=== PATIENT | male | born 1950 | race Caucasian/White ===

== ENCOUNTER 2017-04-19 10:52 | Inpatient (IN) | payer OTHER, MEDICAID ==
[~2017-04-19] VITALS: Ht 172.7 cm; Wt 54.3 kg
[~2017-04-19 10:52] MED LIST: ALBU8.5H3 PO; ASPI-496 PO; ATORVASTATIN PO; DOXY100C2 PO; DOXYCYCLINE PO; IBUP200T64 PO; IBUPROFEN PO; LISI-170 PO; LISINOPRIL PO; LISINOPRIL/HCTZ PO
[2017-04-19] MEDS ORDERED: LACTATED RINGERS 1,000 ML IV SCH (11:17)
[2017-04-19 11:57] VITALS: BP 132/80
[2017-04-19] MEDS ORDERED: ATOR40TA PO (12:13)
[2017-04-19] MEDS ORDERED: LISI1TAB5 PO (12:14)
[2017-04-19] MEDS ORDERED: MIDAZOLAM 1 MG/ML, 2ML ONE (12:47)
[2017-04-19] MEDS ORDERED: FENTANYL PF 250 MCG/5ML ONE (12:47)
[2017-04-19] MEDS ORDERED: DEXAMETHASONE 4 MG/ML, 1ML ONE (12:56)
[2017-04-19] MEDS ORDERED: ROCURONIUM 10 MG/ML ONE (12:56)
[2017-04-19] MEDS ORDERED: CEFAZOLIN 1,000 MG ONE (12:56)
[2017-04-19] MEDS ORDERED: PHENYLEPHRINE 10 MG/ML ONE (12:56)
[2017-04-19] MEDS ORDERED: VASOPRESSIN 20 UNIT/ML, 1ML ONE (12:56)
[2017-04-19] MEDS ORDERED: ONDANSETRON 2MG/ML, 2ML ONE (12:56)
[2017-04-19] MEDS ORDERED: PROPOFOL 10 MG/ML, 20ML ONE (12:56)
[2017-04-19] MEDS ORDERED: BUPIVACAINE/PF-EPI 0.5% 1:200K INFIL ONE (13:33)
[2017-04-19] MEDS ORDERED: BACITRACIN 50,000 UNIT IRRIG ONE (13:33)
[2017-04-19] MEDS ORDERED: THROMBIN 20,000 UNIT VIAL TP ONE (13:34)
[2017-04-19] MEDS ORDERED: HEPARIN 1,000 UNITS/ML, 10ML IV ONE (13:34)
[2017-04-19] MEDS ORDERED: LABETALOL 5MG/ML, 20ML IV PRN (14:00)
[2017-04-19] MEDS ORDERED: hydrALAzine 20 MG/ML, 1ML IV PRN (14:00)
[2017-04-19] MEDS ORDERED: HYDROmorphone 1 MG/ML, 1ML IV PRN (14:00)
[2017-04-19] MEDS ORDERED: ONDANSETRON 2MG/ML, 2ML IVPush PRN ×2 (14:00→19:00)
[2017-04-19] MEDS ORDERED: MEPERIDINE/PF 25MG/0.5ML IVPush PRN (14:00)
[2017-04-19] MEDS ORDERED: ALBUTEROL SULFATE 2.5 MG/3 ML NPPB PRN (14:00)
[2017-04-19] MEDS ORDERED: OXYcodone 5 MG/5 ML ORAL.SOL UDC PO PRN (14:00)
[2017-04-19] MEDS ORDERED: FENTANYL PF 100 MCG/2ML IV PRN (14:00)
[2017-04-19] MEDS ORDERED: MIDAZOLAM 1 MG/ML, 2ML IV PRN (14:00)
[2017-04-19] MEDS ORDERED: PROMETHAZINE 25 MG/ML, 1ML IV PRN (14:00)
[2017-04-19] MEDS ORDERED: FENTANYL PF 100 MCG/2ML ONE ×4 (15:23→18:24)
[2017-04-19] MEDS ORDERED: OXYcodone 5 MG/5 ML ORAL.SOL UDC ONE (18:24)
[2017-04-19] MEDS ORDERED: ALBUTEROL SULFATE PO SCH (19:00)
[2017-04-19] MEDS ORDERED: morphine SULFATE 10 MG/ML, 1ML IV PRN (19:00)
[2017-04-19] MEDS ORDERED: HYDROcodone/APAP 5/325 TABLET PO PRN (19:00)
[2017-04-19 20:00] VITALS: BP 124/72
[2017-04-19] MEDS: LACTATED RINGERS 1,000 ML IV SCH (21:09)
[2017-04-19] MEDS: ATORVASTATIN 40 MG TABLET PO SCH (21:09)
[2017-04-19] MEDS: CEFAZOLIN PMX 2GM/50ML 50 ML IVPB SCH (21:09)
[2017-04-20 00:13] VITALS: BP 102/63
[2017-04-20 03:26] VITALS: BP 101/63
[2017-04-20 05:14] LABS: BLOOD UREA NITROGEN 34 mg/dL (7-18)
[2017-04-20] MEDS: CEFAZOLIN PMX 2GM/50ML 50 ML IVPB SCH (05:47)
[2017-04-20] MEDS ORDERED: ASPIRIN 325 MG TABLET EC PO SCH (06:00)
[2017-04-20 08:04] VITALS: BP 124/81
[2017-04-20] MEDS: HYDROCHLOROTHIAZIDE 12.5 MG CAPSULE PO SCH (09:00)
[2017-04-20] MEDS: LISINOPRIL 20 MG TABLET PO SCH (09:00)
[2017-04-20] MEDS: ENOXAPARIN 40 MG/0.4 ML SQ SCH (09:28)
[2017-04-20] MEDS: LACTATED RINGERS 1,000 ML IV SCH ×2 (09:29→16:00)
[2017-04-20] MEDS: DOXYCYCLINE 100MG TABLET PO SCH ×2 (10:19→20:47)
[2017-04-20 10:22] VITALS: BP 99/65
[2017-04-20 14:30] VITALS: BP 118/67
[2017-04-20 19:55] VITALS: BP_SYST 118; BP_SYST 121; BP_DIAS 69; BP_DIAS 70
[2017-04-20] MEDS: ATORVASTATIN 40 MG TABLET PO SCH (20:47)
[2017-04-21 02:55] VITALS: BP 99/51
[2017-04-21] MEDS ORDERED: ASPIRIN 325 MG TABLET EC PO SCH (06:00)
[2017-04-21] MEDS: LACTATED RINGERS 1,000 ML IV SCH ×2 (08:00)
[2017-04-21 08:15] VITALS: BP 99/55
[2017-04-21] MEDS: LISINOPRIL 20 MG TABLET PO SCH (09:00)
[2017-04-21] MEDS: HYDROCHLOROTHIAZIDE 12.5 MG CAPSULE PO SCH (09:00)
[2017-04-21] MEDS: ENOXAPARIN 40 MG/0.4 ML SQ SCH (09:03)
[2017-04-21] MEDS: DOXYCYCLINE 100MG TABLET PO SCH (09:04)
[2017-04-21 12:35] VITALS: BP 115/64
== END 2017-04-21 16:53 | disposition home or self-care (01) | DRG 270 ==
LOC: OUT 10:52 → EDBD 13:00 → UNMERGE 13:00 → MERGE 13:00 → EDSTATUS 13:00 → ORIP 18:51 → 4NOR 19:55
PROC: 04UL0JZ Supplement Left Femoral Artery with Synthetic Substitute, Open Approach (ICD-10-PCS; 2017-04-19)
PROC: 047J3DZ Dilation of Left External Iliac Artery with Intraluminal Device, Percutaneous Approach (ICD-10-PCS; 2017-04-19)
PROC: 047D3DZ Dilation of Left Common Iliac Artery with Intraluminal Device, Percutaneous Approach (ICD-10-PCS; 2017-04-19)
PROC: 041 Lower Arteries, Bypass (ICD-10-PCS; 2017-04-19)
PROC: 06BQ4ZZ Excision of Left Saphenous Vein, Percutaneous Endoscopic Approach (ICD-10-PCS; 2017-04-19)
PROC: B41D1ZZ Fluoroscopy of Aorta and Bilateral Lower Extremity Arteries using Low Osmolar Contrast (ICD-10-PCS; 2017-04-19)
PROC: 04CL3ZZ Extirpation of Matter from Left Femoral Artery, Percutaneous Approach (ICD-10-PCS; principal; 2017-04-19 13:00)
DX: I70.262 Atherosclerosis of native arteries of extremities with gangrene, left leg (principal); E43 Unspecified severe protein-calorie malnutrition; L03.90 Cellulitis, unspecified; L97.329 Non-pressure chronic ulcer of left ankle with unspecified severity; M86.8X7 Other osteomyelitis, ankle and foot; E78.5 Hyperlipidemia, unspecified; I10 Essential (primary) hypertension; J44.9 Chronic obstructive pulmonary disease, unspecified; I70.90 Unspecified atherosclerosis; F17.210 Nicotine dependence, cigarettes, uncomplicated; I69.320 Aphasia following cerebral infarction
CPT/HCPCS: 36415; 37221; 37223; 75630; 80048; 82040; 85025; 86850; 86900; 86923; C1725; C1729; J0690; J1100; J1644; J1650; J2250; J2405; J2704; J2720; J3010; Q9966; C1769; C1876; C1894; J2370; J7120

== ENCOUNTER → 2017-05-12 | Outpatient (CLI) | payer OTHER, MEDICAID ==
[~2017-05-12] MED LIST changes: +ATOR40TA PO; +LISI1TAB5 PO
== END | disposition home or self-care (01) ==
LOC: WOUND 14:07
PROVIDERS: ATTEND Podiatrist Foot & Ankle Surgery
DX: I70.245 Atherosclerosis of native arteries of left leg with ulceration of other part of foot (principal); L97.521 Non-pressure chronic ulcer of other part of left foot limited to breakdown of skin; I10 Essential (primary) hypertension; E78.5 Hyperlipidemia, unspecified; J44.9 Chronic obstructive pulmonary disease, unspecified; M86.172 Other acute osteomyelitis, left ankle and foot; F17.210 Nicotine dependence, cigarettes, uncomplicated; Z86.73 Personal history of transient ischemic attack (TIA), and cerebral infarction without residual deficits
CPT/HCPCS: 11044; G0463; WOU0463

== ENCOUNTER → 2017-05-19 | Outpatient (CLI) | payer OTHER, MEDICAID | END | disposition home or self-care (01) | LOC: WOUND 09:00 | PROVIDERS: ATTEND Podiatrist Foot & Ankle Surgery | DX: I70.245 Atherosclerosis of native arteries of left leg with ulceration of other part of foot (principal); L97.521 Non-pressure chronic ulcer of other part of left foot limited to breakdown of skin; I10 Essential (primary) hypertension; M86.172 Other acute osteomyelitis, left ankle and foot; F17.210 Nicotine dependence, cigarettes, uncomplicated; Z86.73 Personal history of transient ischemic attack (TIA), and cerebral infarction without residual deficits | CPT/HCPCS: 11043 ==

== ENCOUNTER → 2017-05-26 | Outpatient (CLI) | payer OTHER, MEDICAID | END | disposition home or self-care (01) | LOC: WOUND 09:11 | PROVIDERS: ATTEND Podiatrist Foot & Ankle Surgery | DX: I70.245 Atherosclerosis of native arteries of left leg with ulceration of other part of foot (principal); L97.521 Non-pressure chronic ulcer of other part of left foot limited to breakdown of skin; M86.172 Other acute osteomyelitis, left ankle and foot; I10 Essential (primary) hypertension; J44.9 Chronic obstructive pulmonary disease, unspecified; E78.5 Hyperlipidemia, unspecified; E43 Unspecified severe protein-calorie malnutrition; Z86.73 Personal history of transient ischemic attack (TIA), and cerebral infarction without residual deficits; Z86.718 Personal history of other venous thrombosis and embolism; F17.208 Nicotine dependence, unspecified, with other nicotine-induced disorders | CPT/HCPCS: 15275; Q4132 ==

== ENCOUNTER → 2017-06-01 | Outpatient (CLI) | payer OTHER, MEDICAID | END | disposition home or self-care (01) | LOC: CARD 13:02 | PROVIDERS: ATTEND Podiatrist Foot & Ankle Surgery | DX: I74.5 Embolism and thrombosis of iliac artery (principal); L97.529 Non-pressure chronic ulcer of other part of left foot with unspecified severity; M86.172 Other acute osteomyelitis, left ankle and foot; M86.171 Other acute osteomyelitis, right ankle and foot; I73.9 Peripheral vascular disease, unspecified; I87.2 Venous insufficiency (chronic) (peripheral); Z72.0 Tobacco use; Z86.73 Personal history of transient ischemic attack (TIA), and cerebral infarction without residual deficits | CPT/HCPCS: 93922; 93925; 93970; 93978 ==

== ENCOUNTER → 2017-06-02 | Outpatient (CLI) | payer OTHER, MEDICAID | END | disposition home or self-care (01) | LOC: WOUND 09:07 | PROVIDERS: ATTEND Podiatrist Foot & Ankle Surgery | DX: I70.245 Atherosclerosis of native arteries of left leg with ulceration of other part of foot (principal); L97.521 Non-pressure chronic ulcer of other part of left foot limited to breakdown of skin; I10 Essential (primary) hypertension; M86.8X7 Other osteomyelitis, ankle and foot; M86.172 Other acute osteomyelitis, left ankle and foot; M86.171 Other acute osteomyelitis, right ankle and foot; I87.2 Venous insufficiency (chronic) (peripheral); J44.9 Chronic obstructive pulmonary disease, unspecified; E78.5 Hyperlipidemia, unspecified; F17.208 Nicotine dependence, unspecified, with other nicotine-induced disorders; Z86.73 Personal history of transient ischemic attack (TIA), and cerebral infarction without residual deficits; Z86.718 Personal history of other venous thrombosis and embolism | CPT/HCPCS: 15275; Q4133 ==

== ENCOUNTER → 2017-06-09 | Outpatient (CLI) | payer OTHER, MEDICAID | END | disposition home or self-care (01) | LOC: WOUND 09:02 | PROVIDERS: ATTEND Podiatrist Foot & Ankle Surgery | DX: I70.245 Atherosclerosis of native arteries of left leg with ulceration of other part of foot (principal); L97.521 Non-pressure chronic ulcer of other part of left foot limited to breakdown of skin; I10 Essential (primary) hypertension; J44.9 Chronic obstructive pulmonary disease, unspecified; E78.5 Hyperlipidemia, unspecified; M86.8X7 Other osteomyelitis, ankle and foot; I87.2 Venous insufficiency (chronic) (peripheral); E43 Unspecified severe protein-calorie malnutrition; Z86.718 Personal history of other venous thrombosis and embolism; Z86.73 Personal history of transient ischemic attack (TIA), and cerebral infarction without residual deficits; F17.210 Nicotine dependence, cigarettes, uncomplicated | CPT/HCPCS: 15275; Q4132 ==

== ENCOUNTER → 2017-06-16 | Outpatient (CLI) | payer OTHER, MEDICAID | END | disposition home or self-care (01) | LOC: WOUND 08:55 | PROVIDERS: ATTEND Podiatrist Foot & Ankle Surgery | DX: I70.245 Atherosclerosis of native arteries of left leg with ulceration of other part of foot (principal); L97.521 Non-pressure chronic ulcer of other part of left foot limited to breakdown of skin; I10 Essential (primary) hypertension; M86.172 Other acute osteomyelitis, left ankle and foot; M86.171 Other acute osteomyelitis, right ankle and foot; J44.9 Chronic obstructive pulmonary disease, unspecified; I87.2 Venous insufficiency (chronic) (peripheral); F17.210 Nicotine dependence, cigarettes, uncomplicated; Z86.711 Personal history of pulmonary embolism; Z86.73 Personal history of transient ischemic attack (TIA), and cerebral infarction without residual deficits | CPT/HCPCS: 15271; Q4132 ==

== ENCOUNTER → 2017-06-23 | Outpatient (CLI) | payer OTHER, MEDICAID | END | disposition home or self-care (01) | LOC: WOUND 09:04 | PROVIDERS: ATTEND Podiatrist Foot & Ankle Surgery | DX: I70.245 Atherosclerosis of native arteries of left leg with ulceration of other part of foot (principal); L97.521 Non-pressure chronic ulcer of other part of left foot limited to breakdown of skin; I10 Essential (primary) hypertension; E78.5 Hyperlipidemia, unspecified; J44.9 Chronic obstructive pulmonary disease, unspecified; M86.172 Other acute osteomyelitis, left ankle and foot; M86.171 Other acute osteomyelitis, right ankle and foot; F17.208 Nicotine dependence, unspecified, with other nicotine-induced disorders; Z86.718 Personal history of other venous thrombosis and embolism; Z86.711 Personal history of pulmonary embolism; Z86.73 Personal history of transient ischemic attack (TIA), and cerebral infarction without residual deficits | CPT/HCPCS: 15275; Q4132 ==

== ENCOUNTER → 2017-06-30 | Outpatient (CLI) | payer OTHER, MEDICAID | END | disposition home or self-care (01) | LOC: WOUND 08:42 | PROVIDERS: ATTEND Podiatrist Foot & Ankle Surgery | DX: I70.245 Atherosclerosis of native arteries of left leg with ulceration of other part of foot (principal); L97.521 Non-pressure chronic ulcer of other part of left foot limited to breakdown of skin; I10 Essential (primary) hypertension; J44.9 Chronic obstructive pulmonary disease, unspecified; E78.5 Hyperlipidemia, unspecified; I87.2 Venous insufficiency (chronic) (peripheral); M86.171 Other acute osteomyelitis, right ankle and foot; F17.209 Nicotine dependence, unspecified, with unspecified nicotine-induced disorders; Z86.711 Personal history of pulmonary embolism; Z86.73 Personal history of transient ischemic attack (TIA), and cerebral infarction without residual deficits | CPT/HCPCS: 15275; Q4132 ==

== ENCOUNTER → 2017-07-07 | Outpatient (CLI) | payer OTHER, MEDICAID ==
[~2017-07-07] MED LIST changes: -ALBU8.5H3 PO; +ALBU8.5H8 PO
== END | disposition home or self-care (01) ==
LOC: WOUND 08:59
PROVIDERS: ATTEND Podiatrist Foot & Ankle Surgery
DX: I70.245 Atherosclerosis of native arteries of left leg with ulceration of other part of foot (principal); L97.521 Non-pressure chronic ulcer of other part of left foot limited to breakdown of skin; I10 Essential (primary) hypertension; M86.172 Other acute osteomyelitis, left ankle and foot; M86.171 Other acute osteomyelitis, right ankle and foot; E78.5 Hyperlipidemia, unspecified; J44.9 Chronic obstructive pulmonary disease, unspecified; F17.210 Nicotine dependence, cigarettes, uncomplicated; Z86.73 Personal history of transient ischemic attack (TIA), and cerebral infarction without residual deficits; Z86.718 Personal history of other venous thrombosis and embolism; Z86.711 Personal history of pulmonary embolism
CPT/HCPCS: 15275; Q4132

== ENCOUNTER → 2017-07-14 | Outpatient (CLI) | payer OTHER, MEDICAID | END | disposition home or self-care (01) | LOC: WOUND 09:04 | PROVIDERS: ATTEND Podiatrist Foot & Ankle Surgery | DX: I70.245 Atherosclerosis of native arteries of left leg with ulceration of other part of foot (principal); L97.521 Non-pressure chronic ulcer of other part of left foot limited to breakdown of skin; M86.172 Other acute osteomyelitis, left ankle and foot; I10 Essential (primary) hypertension; F17.208 Nicotine dependence, unspecified, with other nicotine-induced disorders; J44.9 Chronic obstructive pulmonary disease, unspecified; E78.5 Hyperlipidemia, unspecified; Z86.718 Personal history of other venous thrombosis and embolism; Z86.711 Personal history of pulmonary embolism; Z86.73 Personal history of transient ischemic attack (TIA), and cerebral infarction without residual deficits; I87.2 Venous insufficiency (chronic) (peripheral) | CPT/HCPCS: 11044 ==

== ENCOUNTER → 2017-07-21 | Outpatient (CLI) | payer OTHER, MEDICAID | END | disposition home or self-care (01) | LOC: WOUND 09:15 | PROVIDERS: ATTEND Podiatrist Foot & Ankle Surgery | DX: I70.245 Atherosclerosis of native arteries of left leg with ulceration of other part of foot (principal); L97.521 Non-pressure chronic ulcer of other part of left foot limited to breakdown of skin; J44.9 Chronic obstructive pulmonary disease, unspecified; I10 Essential (primary) hypertension; E78.5 Hyperlipidemia, unspecified; M86.172 Other acute osteomyelitis, left ankle and foot; M86.171 Other acute osteomyelitis, right ankle and foot; Z86.718 Personal history of other venous thrombosis and embolism; Z86.711 Personal history of pulmonary embolism; Z86.73 Personal history of transient ischemic attack (TIA), and cerebral infarction without residual deficits; F17.210 Nicotine dependence, cigarettes, uncomplicated | CPT/HCPCS: 11044; 97597; 97598 ==

== ENCOUNTER → 2017-07-28 | Outpatient (CLI) | payer OTHER, MEDICAID | END | disposition home or self-care (01) | LOC: WOUND 09:02 | PROVIDERS: ATTEND Podiatrist Foot & Ankle Surgery | DX: I70.245 Atherosclerosis of native arteries of left leg with ulceration of other part of foot (principal); L97.521 Non-pressure chronic ulcer of other part of left foot limited to breakdown of skin; J44.9 Chronic obstructive pulmonary disease, unspecified; I10 Essential (primary) hypertension; E78.5 Hyperlipidemia, unspecified; M86.172 Other acute osteomyelitis, left ankle and foot; M86.171 Other acute osteomyelitis, right ankle and foot; F17.210 Nicotine dependence, cigarettes, uncomplicated; Z86.718 Personal history of other venous thrombosis and embolism; Z86.711 Personal history of pulmonary embolism; Z86.73 Personal history of transient ischemic attack (TIA), and cerebral infarction without residual deficits | CPT/HCPCS: 15275; Q4132 ==

== ENCOUNTER → 2017-08-04 | Outpatient (CLI) | payer OTHER, MEDICAID | END | disposition home or self-care (01) | LOC: WOUND 08:54 | PROVIDERS: ATTEND Podiatrist Foot & Ankle Surgery | DX: I70.245 Atherosclerosis of native arteries of left leg with ulceration of other part of foot (principal); E11.621 Type 2 diabetes mellitus with foot ulcer; L97.521 Non-pressure chronic ulcer of other part of left foot limited to breakdown of skin; I10 Essential (primary) hypertension; E11.69 Type 2 diabetes mellitus with other specified complication; M86.172 Other acute osteomyelitis, left ankle and foot; M86.171 Other acute osteomyelitis, right ankle and foot; J44.9 Chronic obstructive pulmonary disease, unspecified; E78.5 Hyperlipidemia, unspecified; F17.210 Nicotine dependence, cigarettes, uncomplicated; Z86.711 Personal history of pulmonary embolism; Z86.718 Personal history of other venous thrombosis and embolism; Z86.73 Personal history of transient ischemic attack (TIA), and cerebral infarction without residual deficits | CPT/HCPCS: 15275; Q4132 ==

== ENCOUNTER → 2017-08-11 | Outpatient (CLI) | payer OTHER, MEDICAID | END | disposition home or self-care (01) | LOC: WOUND 08:59 | PROVIDERS: ATTEND Podiatrist Foot & Ankle Surgery | DX: I70.245 Atherosclerosis of native arteries of left leg with ulceration of other part of foot (principal); L97.521 Non-pressure chronic ulcer of other part of left foot limited to breakdown of skin; I10 Essential (primary) hypertension; J44.9 Chronic obstructive pulmonary disease, unspecified; M86.172 Other acute osteomyelitis, left ankle and foot; M86.171 Other acute osteomyelitis, right ankle and foot; E78.5 Hyperlipidemia, unspecified; Z86.718 Personal history of other venous thrombosis and embolism; Z86.711 Personal history of pulmonary embolism; Z86.73 Personal history of transient ischemic attack (TIA), and cerebral infarction without residual deficits; F17.210 Nicotine dependence, cigarettes, uncomplicated | CPT/HCPCS: 97597 ==

== ENCOUNTER → 2017-08-25 | Outpatient (CLI) | payer OTHER, MEDICAID | END | disposition home or self-care (01) | LOC: WOUND 09:08 | PROVIDERS: ATTEND Podiatrist Foot & Ankle Surgery | DX: L03.032 Cellulitis of left toe (principal); I10 Essential (primary) hypertension; M86.172 Other acute osteomyelitis, left ankle and foot; Z86.73 Personal history of transient ischemic attack (TIA), and cerebral infarction without residual deficits; E11.52 Type 2 diabetes mellitus with diabetic peripheral angiopathy with gangrene; J44.9 Chronic obstructive pulmonary disease, unspecified; E78.5 Hyperlipidemia, unspecified; Z86.718 Personal history of other venous thrombosis and embolism; Z86.711 Personal history of pulmonary embolism; F17.208 Nicotine dependence, unspecified, with other nicotine-induced disorders | CPT/HCPCS: G0463; WOU0463 ==

== ENCOUNTER 2018-07-13 09:40 | Observation (INO) | payer OTHER, MEDICAID ==
[2018-07-12 11:38] VITALS: BP 118/84
[2018-07-12 12:08] LABS: BASOPHILS % (AUTO) 2 % (0-1); EOSINOPHILS % (AUTO) 2 % (1-7); LYMPHOCYTES # (AUTO) 1.04 x10^3/uL (1-3.4); LYMPHOCYTES % (AUTO) 18 % (22-44); MD NO; MEAN CORPUSCULAR HEMOGLOBIN 31.7 pg (27.5-34.5); MEAN CORPUSCULAR HGB CONC 33.6 g/dL (33.2-36.2); MEAN CORPUSCULAR VOLUME 94.6 fL (81-97); MEAN PLATELET VOLUME 8.3 fL (7.4-10.4); MONOCYTES # (AUTO) 0.52 x10^3/uL (0.2-0.8); MONOCYTES % (AUTO) 9 % (2-9); NEUTROPHILS # (AUTO) 3.97 x10^3/uL (1.8-6.8); NEUTROPHILS % (AUTO) 69 % (42-75); PLATELET COUNT 207 x10^3/uL (130-400); RED BLOOD COUNT 4.83 x10^6/uL (4.38-5.82); RED CELL DISTRIBUTION WIDTH 13.5 % (9.4-14.8)
[2018-07-12 12:24] LABS: ALANINE AMINOTRANSFERASE 32 U/L (12-78); ANION GAP 6 mmol/L (5-15); CALCIUM 8.9 mg/dL (8.5-10.1); CHLORIDE 109 mmol/L (98-107)
[2018-07-12 12:27] LABS: ALKALINE PHOSPHATASE 127 U/L (45-117); BILIRUBIN,TOTAL 0.3 mg/dL (0.2-1.0); CREATININE 1.46 mg/dL (0.7-1.3); TOTAL PROTEIN 7.7 g/dL (6.4-8.2)
[~2018-07-13] VITALS: Ht 167.6 cm; Wt 56.0 kg
[2018-07-13] MEDS ORDERED: LACTATED RINGERS 1,000 ML IV SCH ×2 (10:31→19:00)
[2018-07-13] MEDS ORDERED: BUPIVACAINE/PF 0.5% ONE (11:31)
[2018-07-13] MEDS ORDERED: THROMBIN 5,000 UNIT VIAL TP ONE (11:31)
[2018-07-13] MEDS ORDERED: HEPARIN 1,000 UNITS/ML, 10ML ONE (11:31)
[2018-07-13] MEDS ORDERED: PROTAMINE SULFATE 10 MG/ML, 5ML ONE (11:31)
[2018-07-13] MEDS ORDERED: EPINEPHRINE 1 MG/ML, 1ML ONE (11:32)
[2018-07-13] MEDS ORDERED: BACITRACIN 50,000 UNIT ONE (11:32)
[2018-07-13] MEDS ORDERED: THROMBIN 20,000 UNIT VIAL TP ONE (11:40)
[2018-07-13] MEDS ORDERED: FENTANYL PF 250 MCG/5ML ONE (13:55)
[2018-07-13] MEDS ORDERED: MIDAZOLAM 1 MG/ML, 2ML ONE (13:55)
[2018-07-13] MEDS ORDERED: LABETALOL 5MG/ML, 20ML ONE (13:55)
[2018-07-13] MEDS ORDERED: SUCCINYLCHOLINE 20 MG/ML, 10ML ONE (13:55)
[2018-07-13] MEDS ORDERED: PHENYLEPHRINE 10 MG/ML ONE (13:55)
[2018-07-13] MEDS ORDERED: DEXAMETHASONE 4 MG/ML, 1ML ONE (13:55)
[2018-07-13] MEDS ORDERED: ONDANSETRON 2MG/ML, 2ML ONE (13:55)
[2018-07-13] MEDS ORDERED: ROCURONIUM 10 MG/ML,10ML ONE (13:55)
[2018-07-13] MEDS ORDERED: CEFAZOLIN 1,000 MG ONE (13:55)
[2018-07-13] MEDS ORDERED: PROPOFOL 10 MG/ML, 20ML ONE (13:55)
[2018-07-13] MEDS ORDERED: VISIPAQUE 270 MG/ML, 50ML BOTTLE IV ONE (14:51)
[2018-07-13] MEDS ORDERED: VISIPAQUE 270 MG/ML, 50ML BOTTLE ONE ×2 (15:20→16:07)
[2018-07-13] MEDS ORDERED: LABETALOL 5MG/ML, 20ML IV PRN (15:30)
[2018-07-13] MEDS ORDERED: ONDANSETRON 2MG/ML, 2ML IV PRN (15:30)
[2018-07-13] MEDS ORDERED: PROMETHAZINE 25 MG/ML, 1ML IV PRN (15:30)
[2018-07-13] MEDS ORDERED: ACETAMINOPHEN 325 MG TABLET PO PRN (15:30)
[2018-07-13] MEDS ORDERED: HYDROmorphone 1 MG/ML, 1ML IV PRN (15:30)
[2018-07-13] MEDS ORDERED: MEPERIDINE/PF 25MG/0.5ML IVPush PRN (15:30)
[2018-07-13] MEDS ORDERED: MORPHINE SULFATE 4 MG/ML, 1ML IVPush PRN (15:30)
[2018-07-13] MEDS ORDERED: hydrALAzine 20 MG/ML, 1ML IV PRN (15:30)
[2018-07-13] MEDS ORDERED: OXYcodone 5 MG/5 ML ORAL.SOL UDC PO PRN (15:30)
[2018-07-13] MEDS ORDERED: FENTANYL PF 100 MCG/2ML IV PRN (15:30)
[2018-07-13] MEDS ORDERED: PAPAVERINE 30 MG/ML, 2ML IVPush ONE ×2 (16:18)
[2018-07-13] MEDS ORDERED: FENTANYL PF 100 MCG/2ML ONE (17:39)
[2018-07-13] MEDS ORDERED: OXYcodone 5 MG/5 ML ORAL.SOL UDC ONE (17:39)
[2018-07-13] MEDS ORDERED: ACETAMINOPHEN 650 MG/20.3 ML UDC ONE (17:39)
[2018-07-13] MEDS ORDERED: MEPERIDINE/PF 50 MG/ML ONE (18:07)
[2018-07-13] MEDS ORDERED: ALBUTEROL SULFATE 2.5 MG/3 ML NPPB PRN (19:00)
[2018-07-13] MEDS ORDERED: HYDROcodone/APAP 5/325 TABLET PO PRN (19:30)
[2018-07-13] MEDS ORDERED: ATORVASTATIN 40 MG TABLET PO SCH (21:00)
[2018-07-13] MEDS: SODIUM CHLORIDE FLUSH 10ML SYR IVF SCH (21:00)
[2018-07-14 00:16] VITALS: BP 134/73
[2018-07-14 04:31] VITALS: BP 128/61
[2018-07-14] MEDS ORDERED: ASPIRIN 81 MG TABLET EC PO SCH (06:00)
[2018-07-14 08:55] VITALS: BP 138/76
[2018-07-14] MEDS ORDERED: HYDROCHLOROTHIAZIDE 12.5 MG CAPSULE PO SCH (09:00)
[2018-07-14] MEDS ORDERED: LISINOPRIL 20 MG TABLET PO SCH (09:00)
[2018-07-14] MEDS: SODIUM CHLORIDE FLUSH 10ML SYR IVF SCH (09:01)
[2018-07-14 13:12] VITALS: BP 156/73
== END 2018-07-14 13:38 | disposition home or self-care (01) ==
LOC: OUT 09:40 → 4NOR 18:37 → OUT 18:47 → 4NOR 18:47 → DCLOUNGE 07-14 13:25
DX: I70.203 Unspecified atherosclerosis of native arteries of extremities, bilateral legs (principal); I70.263 Atherosclerosis of native arteries of extremities with gangrene, bilateral legs; J44.9 Chronic obstructive pulmonary disease, unspecified; I10 Essential (primary) hypertension; I70.262 Atherosclerosis of native arteries of extremities with gangrene, left leg; E78.5 Hyperlipidemia, unspecified; Z72.0 Tobacco use
CPT/HCPCS: 36415; 37220; 37224; 71046; 75710; 80053; 85025; 93005; C1729; C1760; G0378; J0171; J0330; J0690; J1100; J1644; J2250; J2370; J2405; J2440; J2704; J2720; J3010; J3490; J7120; Q9966